=== PATIENT | male | born 1960 | race Caucasian/White ===

== ENCOUNTER 2016-11-30 20:20 | Inpatient (IN) | payer OTHER ==
[~2016-11-30 20:20] MED LIST: AMIT100 PO; AMIT25 PO; FISH-EPA1000 MG PO; GARLIC; KLONO1 PO; KLONOPIN WAF1 MG; MILK THISLE; NEUR300 PO; NORCO1 TAB PO; PCET PO; PLAVIX PO; PRAVACHOL40 MG PO; PRIN10 PO; PRIN5 PO
[2016-11-30] MEDS ORDERED: AMIT25 PO (21:19)
[2016-11-30] MEDS ORDERED: NORCO1 TAB PO (21:20)
[2016-11-30] MEDS ORDERED: KLONO1 PO (21:20)
[2016-11-30] MEDS ORDERED: PRAVACHOL40 MG PO (21:21)
[2016-11-30] MEDS ORDERED: PLAVIX PO (21:21)
[2016-11-30] MEDS ORDERED: PRIN10 PO (21:21)
[2016-11-30] MEDS ORDERED: NEUR600 PO (21:22)
[2016-11-30] MEDS ORDERED: ASAB PO (21:22)
[2016-11-30 21:46] LABS: BASOPHILS 0.2 %; BASOPHILS ABSOLUTE 0.02 10/3/uL (0.0-0.16); EOSINOPHILS 1.7 %; EOSINOPHILS ABSOLUTE 0.16 10/3/uL (0.0-0.53); HEMOGLOBIN 14.8 g/dL (13.6-17.8); IMMATURE GRANULOCYTES 0.2 %; IMMATURE GRANULOCYTES ABSOLUTE 0.02 10/3/uL (0.0-0.11); LYMPHOCYTES 37.3 %; LYMPHOCYTES ABSOLUTE 3.57 10/3/uL (0.67-4.30); MEAN CORPUS HGB CONC 33.6 g/dL (32.0-36.0); MEAN CORPUSCULAR HEMOGLOB 32.4 pg (26.0-34.0); MEAN CORPUSCULAR VOLUME 96.3 fL (80-100); MEAN PLATELET VOLUME 8.8 fL (9.2-13.0); MONOCYTES 7.3 %; NEUTROPHILS 53.3 %; PLATELET COUNT 307 10/3/uL (150-400); RBC DISTRIBUTION WIDTH 13.4 % (12.0-16.0); RED CELL COUNT 4.57 10/6/uL (4.7-6.1); WHITE BLOOD CELLS 9.6 10/3/uL (4.5-10.5)
[2016-11-30 21:47] LABS: MANUAL DIFF NO %
[2016-11-30 21:53] LABS: INTERNATIONAL NORMAL RATI 1.1 UNITS (-); PROTIME (NOT ORD) 14.1 SEC (12.0-14.5)
[2016-11-30 22:05] LABS: BUN (BLOOD UREA NITROGEN) 8 MG/DL (6-23); CALCIUM, SERUM 8.5 MG/DL (8.5-10.4); CHLORIDE, SERUM 105 MMOL/L (96-112); CO2 (CARBON DIOXIDE) 32 MMOL/L (24-34); CREATININE 0.95 MG/DL (0.70-1.30); GFR AFRICAN AMERICAN 104 ML/MIN (>=60); GFR NON AFRICAN AMERICAN 90 ML/MIN (>=60); GLUCOSE, SERUM 83 MG/DL (60-99); SODIUM, SERUM 138 MMOL/L (135-148)
[2016-12-01 23:47] LABS: ULTRASENSITIVE TSH 0.651 MCIU/ML (0.358-3.740)
[2016-12-02 04:49] LABS: BUN (BLOOD UREA NITROGEN) 6 MG/DL (6-23); CALCIUM, SERUM 8.3 MG/DL (8.5-10.4); CHLORIDE, SERUM 108 MMOL/L (96-112); CREATININE 0.85 MG/DL (0.70-1.30); GFR AFRICAN AMERICAN 114 ML/MIN (>=60); GFR NON AFRICAN AMERICAN 98 ML/MIN (>=60); GLUCOSE, SERUM 97 MG/DL (60-99); POTASSIUM, SERUM 3.6 MMOL/L (3.5-5.3); SODIUM, SERUM 142 MMOL/L (135-148)
[2016-12-02 04:54] LABS: CO2 (CARBON DIOXIDE) 24 MMOL/L (24-34)
[2016-12-02] MEDS ORDERED: ELIQUIS 5 MG TAB5 MG PO ×2 (13:00→13:01)
[2016-12-02] MEDS ORDERED: [UNRECOGNIZED DRUG - CODE] PO (13:27)
== END 2016-12-02 14:40 | disposition home or self-care (01) | DRG 301 ==
LOC: 2SO 20:20
PROVIDERS: Internal Medicine; Specialist
DX: I70.228 Atherosclerosis of native arteries of extremities with rest pain, other extremity (principal); I10 Essential (primary) hypertension; R00.1 Bradycardia, unspecified; F17.210 Nicotine dependence, cigarettes, uncomplicated; E78.00 Pure hypercholesterolemia, unspecified; Z53.9 Procedure and treatment not carried out, unspecified reason; Z86.718 Personal history of other venous thrombosis and embolism; Z98.890 Other specified postprocedural states
CPT/HCPCS: 71010; 80048; 82330; 83735; 84443; 85025; 85610; 85730; 93005; 93306; 97161-GP; A9270-GY